=== PATIENT | male | born 1965 | race Caucasian/White ===

== ENCOUNTER 2018-03-28 15:34 | Emergency (ER) | payer SELFPAY ==
[~2018-03-28] VITALS: Ht 165.1 cm; Wt 99.8 kg
[2018-03-28 15:43] VITALS: BP 137/77
--- NOTE | 2018-03-28 15:43 | NUR ---
PATIENT TRIAGED. VSS, SENT TO ER LOBBY.
--- NOTE | 2018-03-28 17:31 | NUR ---
continues to wait for available room for md [email or web address]---no change in complaint
--- NOTE | 2018-03-28 18:49 | NUR ---
PT C/O LOW BACK PAIN X2 WEEKS RADIATES DOWN L LEG 12/26. TOOK MOTRIN WITH NO RELIEF, DENIES TRAUMA/INJURY. PMH---HTN, STROKE NKA
--- NOTE | 2018-03-28 18:49 | NUR ---
PT AMBULATED TO BED 3
--- NOTE | 2018-03-28 19:05 | NUR ---
REPORT TO MAGGIE COWAN
--- NOTE | 2018-03-28 19:06 | NUR ---
REPORT FROM CAMRYN RODRIGUEZ AT THIS TIME
[2018-03-28] MEDS ORDERED: HYDROcodone/APAP 10/325 MG 1 TAB TAB PO ONE (21:05)
[2018-03-28] MEDS ORDERED: HYDROcodone/APAP 10/325 MG 1 TAB TAB ONE (21:21)
--- NOTE | 2018-03-28 21:23 | NUR ---
PT TO XRAY VIA WC
--- NOTE | 2018-03-28 21:50 | NUR ---
PT RETURN FROM XRAY.
[2018-03-28 23:33] VITALS: BP 120/82
--- NOTE | 2018-03-28 23:33 | NUR ---
Patient discharged with v/s stable. Written and verbal after care instructions given and explained. Patient alert, oriented and verbalized understanding of instructions. Ambulatory with steady gait. All questions addressed prior to discharge. ID band removed. Patient advised to follow up with PMD. Rx of ULTRAM given. Patient educated on indication of medication including possible reaction and side effects. Opportunity to ask questions provided and answered.
== END 2018-03-28 23:33 | disposition home or self-care (01) ==
LOC: MED 15:34
DX: S39.012A Strain of muscle, fascia and tendon of lower back, initial encounter (principal); S29.012A Strain of muscle and tendon of back wall of thorax, initial encounter; I10 Essential (primary) hypertension; V89.2XXA Person injured in unspecified motor-vehicle accident, traffic, initial encounter; Y93.I9 Activity, other involving external motion; Y92.488 Other paved roadways as the place of occurrence of the external cause; Y99.8 Other external cause status
CPT/HCPCS: 72040; 72072; 72100; 99284